=== PATIENT | female | born 1930 | race Caucasian/White ===

== ENCOUNTER 2016-11-28 17:34 | Emergency (ER) | payer BC ==
[~2016-11-28] VITALS: Wt 48.0 kg
[~2016-11-28 17:34] MED LIST: ASPI-664 PO; ATOR80TA75 PO; CALC500T PO; CARV12.579 PO; CHOL2000 PO; FER325 PO; KRIL1CAP22 PO; LACTINEX PO; LATA2.5D2 BOTH EYES; LORA-441 PO; OCUVITE PO
[2016-11-28] MEDS ORDERED: ONDANSETRON (ODT) 4 MG TAB ODT STA (18:06)
[2016-11-28] MEDS ORDERED: GABA100C14 PO (18:28)
[2016-11-28] MEDS ORDERED: MECLIZINE 12.5 MG TAB PO ONE (18:30)
--- NOTE | 2016-11-28 19:18 | RADRPT ---
PROCEDURE: CT Brain without contrast. CLINICAL INDICATION: Dizziness. TECHNIQUE: A CT of the brain was performed on a high-resolution CT scanner utilizing axial imaging from the skull base through the vertex without IV contrast. Multiplanar reformatted images were ma de. Images were reviewed on a PACS workstation. The CTDIvol is 43.77 mGy and the DLP is 630.2 mGyc m. COMPARISON: CT scan of the brain 06/25/2014. FINDINGS: The fourth ventricle, third and lateral ventricles are normal in size configuration. The brain pare nchyma is except normal except for chronic small vessel ischemic changes in the periventricular whit e matter tracts adjacent to the lateral ventricles. There are vascular calcifications in the caverno us and supracavernous portions of the internal carotid arteries. No intracranial mass or hemorrhag e is identified. The visible portions of the globes and extraocular muscles are normal. The parana brent sinuses are clear. The mastoid air cells and internal auditory canals are normal. The bony catarina varium is intact. IMPRESSION: 1. There are vascular calcifications in the cavernous and supracavernous portions of the internal c arotid arteries. 2. There are chronic small vessel ischemic changes in the periventricular white matter tracts adjac ent to the lateral ventricles. 3. There has been no significant change as compared to 06/25/2014. RPTAT:AAJJ Physician Channing Date Time Electronically viewed and signed by Physician Channing on 11/28/2016 19:18 ZAIN/
[2016-11-28] MEDS ORDERED: MECL12.574 PO (19:46)
[2016-11-28] MEDS ORDERED: ONDA4TAB14 PO (19:46)
--- NOTE | 2016-11-28 19:46 | ERD ---
ER Documentation Chief Complaint Date/Time DATE: 11/28/16 TIME: 19:46 Chief Complaint dizziness today no trauma or injury. no cp or sob. no neuro deficit HPI Patient is a 86-year-old female with coronary disease and hypertension who presents with dizziness. She said that her stomach was upset this morning and she felt dizzy. She felt like her blood pressure was high. She went to an urgent care which sent her to the ER for further evaluation. Her blood pressure in the urgent care was 190 systolic. The patient has no blurry vision and no slurred speech. She has no weakness of her arms or legs. She said that the symptoms were worse when she laid down. She denies chest pain or headache. Her primary doctor is Dr. Gr. ROS All systems reviewed and are negative except as per history of present illness. Medications Home Meds Active Scripts Ondansetron (Ondansetron Odt) 4 Mg Tab.rapdis, 4 MG PO Q6H Y for NAUSEA AND/OR VOMITING, #30 TAB Prov:CONNIE MARTINEZ MD 11/28/16 Meclizine Hcl* (Antivert*) 12.5 Mg Tab, 12.5 MG PO Q6H Y for DIZZINESS, #20 TAB Prov:CONNIE MARTINEZ MD 11/28/16 Lorazepam* (Ativan*) 0.5 Mg Tablet, 0.5 MG PO Q8 for ANXIETY, #10 TAB Prov:CARRIE DONG 02/14/16 Reported Medications Gabapentin* (Gabapentin*) 100 Mg Capsule, 100 MG PO QHS, #90 CAP 11/28/16 Krill/Om-3/Dha/Epa/Phospho/Ast (Megared [place]-3 Krill Oil Sfgl) 1 Each Capsule, 1 EACH PO DAILY, CAP 02/14/16 Cholecalciferol* (Vitamin D3*) 2,000 Unit Cap, 2000 UNIT PO DAILY, CAP 02/14/16 Beta Carotene (A) W-C & E/Min* (Ocuvite*) 1 Tab Tab, 1 TAB PO DAILY, TAB 02/14/16 Latanoprost (Latanoprost) 2.5 Ml Drops, 1 DROP BOTH EYES QHS, #1 BOTTLE 02/14/16 Lactobacillus Acidophilus* (Lactinex*) 1 Tab Chew, 1 TAB PO DAILY, TAB 02/14/16 Calcium Carbonate* (Os-Gian 500*) 1 Tab Tablet, 1 TAB PO DAILY, TAB 02/14/16 Ferrous Sulfate* (Ferrous Sulfate*) 325 Mg Tabec, 325 MG PO DAILY, TAB 02/14/16 Aspirin (Aspirin) 81 Mg Tablet.dr, 81 MG PO DAILY 07/13/13 Atorvastatin* (Atorvastatin*) 80 Mg Tablet, 80 MG PO DAILY 07/13/13 Carvedilol* (Carvedilol*) 12.5 Mg Tablet, 12.5 MG PO BID 03/23/12 Allergies Allergies: Coded Allergies: No Known Allergy (Unverified , 11/28/16) PMhx/Soc History of Surgery: Yes (CSECTIONS, STENT PLACEMENT) Anesthesia Reaction: No Hx Neurological Disorder: No Hx Respiratory Disorders: No Hx Cardiac Disorders: Yes ([place]) Hx Psychiatric Problems: No Hx Miscellaneous Medical Probl: No Hx Alcohol Use: No Hx Substance Use: No Hx Tobacco Use: No FmHx Family History: No diabetes Physical Exam Vitals Vital Signs Date Time Temp Pulse Resp B/P Pulse Ox O2 Delivery O2 Flow Rate FiO2 11/28/16 17:47 98.8 73 20 153/72 98 Physical Exam Const: No acute distress Head: Atraumatic Eyes: Normal Conjunctiva ENT: Normal External Ears, Nose and Mouth. Neck: Full range of motion..~ No meningismus. Resp: Clear to auscultation bilaterally Cardio: Regular rate and rhythm, no murmurs Abd: Soft, non tender, non distended. Normal bowel sounds Skin: No petechiae or rashes Back: No midline or flank tenderness Ext: No cyanosis, or edema Neur: Awake and alert, cranial nerves II through XII are intact, strength is 5 out of 5 in all 4 extremities, no slurred speech, no pronator drift, finger to nose is normal bilaterally Psych: Normal Mood and Affect Results 24 hrs Laboratory Tests Test 11/28/16 19:27 Bedside Glucose 90mg/dL Current Medications Medications (Trade) Dose Ordered Sig/Ray Route PRN Reason Start Time Stop Time Status Last Admin Dose Admin Meclizine HCl (Antivert) 25 mg ONCE ONCE PO 11/28/16 18:30 11/28/16 18:31 DC 11/28/16 18:19 Ondansetron HCl (Zofran Odt) 4 mg ONCE STAT ODT 11/28/16 18:06 11/28/16 18:08 DC 11/28/16 18:18 Procedures/MDM EKG read by me: Rate/Rhythm: Regular rate and rhythm at a rate of 65 Intervals: Normal Impression: No evidence of ischemia or arrhythmia Accu-Chek is normal PROCEDURE: CT Brain without contrast. CLINICAL INDICATION: Dizziness. TECHNIQUE: A CT of the brain was performed on a high-resolution CT scanner utilizing axial imaging from the skull base through the vertex without IV contrast. Multiplanar reformatted images were made. Images were reviewed on a PACS workstation. The CTDIvol is 43.77 mGy and the DLP is 630.2 mGycm. COMPARISON: CT scan of the brain 06/25/2014. FINDINGS: The fourth ventricle, third and lateral ventricles are normal in size configuration. The brain parenchyma is except normal except for chronic small vessel ischemic changes in the periventricular white matter tracts adjacent to the lateral ventricles. There are vascular calcifications in the cavernous and supracavernous portions of the internal carotid arteries. No intracranial mass or hemorrhage is identified. The visible portions of the globes and extraocular muscles are normal. The paranasal sinuses are clear. The mastoid air cells and internal auditory canals are normal. The bony calvarium is intact. IMPRESSION: 1. There are vascular calcifications in the cavernous and supracavernous portions of the internal carotid arteries. 2. There are chronic small vessel ischemic changes in the periventricular white matter tracts adjacent to the lateral ventricles. 3. There has been no significant change as compared to 06/25/2014. RPTAT:AAJJ Physician Channing Date Time Electronically viewed and signed by Ulises Hodge Physician on 11/28/2016 19:18 Patient is an 86-year-old female presents with dizziness. Her EKG shows no signs of ischemia. Accu-Chek is normal and I doubt hypo-or hyperglycemia. CT scan shows no intracranial hemorrhage or mass. Her symptoms are not consistent with stroke at this time although we did discuss the possibility of posterior circulation stroke. I did offer laboratory studies and admission but she would prefer to go home at this time. I believe that this is reasonable for outpatient management but she will need close follow-up with her primary doctor within 24-48 hours for reevaluation. The patient can return for any worsening symptoms. At this point I doubt acute coronary syndrome, stroke, or serious bacterial infection. Departure Diagnosis: Primary Impression: Dizziness Condition: Fair Patient Instructions: Dizziness, Unk Cause Referrals: PINO GR MD (PCP) Additional Instructions: Call your primary care doctor TOMORROW for an appointment during the next 1-2 days.See the doctor sooner or return here if your condition worsens before your appointment time. CONNIE MARTINEZ MD Nov 28, 2016 19:46
[2016-11-28] MEDS ORDERED: NICARDipine HCL 30 MG CAPSULE PO ONE (20:30)
[2016-11-28 21:05] VITALS: BP 188/91; PULSE 68; RESP 18
== END 2016-11-28 21:05 | disposition home or self-care (01) ==
LOC: E/R 17:34
DX: R42 Dizziness and giddiness (principal); I10 Essential (primary) hypertension; I25.10 Atherosclerotic heart disease of native coronary artery without angina pectoris; Z79.82 Long term (current) use of aspirin; Z98.61 Coronary angioplasty status
CPT/HCPCS: 70450; 82962; 93005